=== PATIENT | male | born 1995 | race Two or more races ===

== ENCOUNTER 2024-02-08 13:46 | Emergency (ER) | payer OTHER ==
[~2024-02-08] VITALS: Ht 177.8 cm; Wt 126.2 kg
[2024-02-08] MEDS: proCHLORperazine 10 MG/2 ml inj IV ONE (14:03)
[2024-02-08] MEDS: LORazepam 2 mg/ml vial IV ONE (14:03)
[2024-02-08] MEDS: diphenhydrAMINE 50 mg/ml inj IV ONE (14:03)
[2024-02-08] MEDS: normal saline 1000ML IV soln IVB ONE (14:08)
[2024-02-08] MEDS: haloperidol lactate 5mg/ml inj IM ONE (14:46)
[2024-02-08] MEDS: normal saline 1000ml 1,000 ML IV ONE ×2 (14:46→16:18)
[2024-02-08 14:48] VITALS: TEMP 98
[2024-02-08 15:09] LABS: BASOPHILS % (AUTO) 0.4 % (0-1); EOSINOPHILS % (AUTO) 0 % (0-6); HEMATOCRIT 45.4 % (42.0-52.0); HEMOGLOBIN 15.3 g/dl (14.0-17.9); LYMPHOCYTES % (AUTO) 9.3 % (21-51); MEAN CORPUSCULAR HEMOGLOBIN 28.7 PG (27.0-31.0); MEAN CORPUSCULAR HGB CONC 33.6 g/dL (33.0-36.5); MEAN CORPUSCULAR VOLUME 85.5 FL (78-98); MEAN PLATELET VOLUME 8.6 FL (7.4-10.4); MONOCYTES # (AUTO) 1.2 X10'3 (0-0.9); NEUTROPHILS # (AUTO) 8.6 X10'3 (1.8-7.7); NEUTROPHILS % (AUTO) 79.3 % (42-75); PLATELET COUNT 235 X10'3 (140-440); RED BLOOD COUNT 5.32 X10'6 (4.70-6.10); RED CELL DISTRIBUTION WIDTH 13.9 % (11.5-14.5); WHITE BLOOD COUNT 10.9 X10'3 (4.5-11.0)
[2024-02-08 15:51] LABS: ALANINE AMINOTRANSFERASE 59 U/L (12-78); ALBUMIN 4.5 G/DL (3.4-5.0); ALBUMIN/GLOBULIN RATIO 1.3 (1.1-1.5); ALKALINE PHOSPHATASE 74 IU/L (46-116); ANION GAP 19 (8-16); ASPARTATE AMINO TRANSFERASE 30 U/L (10-37); BILIRUBIN,DIRECT 0.2 MG/DL (0-0.3); BILIRUBIN,TOTAL 1.1 MG/DL (0.1-1.0); BLOOD UREA NITROGEN 18 MG/DL (7-18); BUN/CREATININE RATIO 14.2 (10.0-20.0); CALCIUM 8.8 MG/DL (8.5-10.1); CHLORIDE 103 MMOL/L (99-107); CREATININE 1.27 MG/DL (0.60-1.10); GLUCOSE 95 MG/DL (70-104); LIPASE 14 U/L (16-77); POTASSIUM 3.6 MMOL/L (3.5-5.1); SODIUM 141 MMOL/L (135-145); TOTAL CARBON DIOXIDE 19.5 MMOL/L (24-32); eCRCL 89 ML/MIN; eGFR 68 ML/MIN
[2024-02-08 15:54] LABS: ETHANOL < 10 MG/DL (<10)
[2024-02-08] MEDS: ketorolac trometh 15mg/ml vial 15 MG/ML ML IV ONE (16:18)
[2024-02-08] MEDS: ondansetron/PF 4mg/2ml inj IV ONE (16:18)
[2024-02-08] MEDS: acetaminophen 1,000mg/100ml IV 100 ML IV ONE (16:18)
[2024-02-08 16:49] LABS: BILIRUBIN,URINE NEGATIVE (Neg); CLARITY,URINE CLEAR (Clear); COLOR,URINE STRAW (Yellow); GLUCOSE, URINE NEGATIVE (Neg); KETONES,URINE >=80 mg/dl (Neg); LEUKOCYTE ESTERASE ,URINE NEGATIVE (Neg); NITRITES, URINE NEGATIVE (Neg); OCCULT BLOOD,URINE TRACE-INTACT (Neg); PROTEIN,URINE NEGATIVE (Neg); UROBILINOGEN,URINE 0.2 E.U/dL (0.2-1.0)
[2024-02-08 16:51] LABS: UA COLLECTION TYPE CLN CATCH MIDSTREAM
[2024-02-08 16:55] LABS: BACTERIA,URINE NONE SEEN /HPF (Neg); MUCUS STRANDS NONE SEEN /LPF (Neg); RBC,URINE 0-2 /HPF (0-2); SQUAMOUS EPITHELIAL CELL,UR FEW /LPF (FEW); WBC,URINE 0-4 /HPF (0-4)
[2024-02-08 16:58] LABS: URINE AMPHETAMINE SCREEN NEGATIVE (Neg); URINE BARBITUATE SCREEN NEGATIVE (Neg); URINE BENZODIAZEPINES SCREEN NEGATIVE (Neg); URINE CANNABINOID SCREEN POSITIVE (Neg); URINE COCAINE SCREEN NEGATIVE (Neg); URINE METHADONE SCREEN NEGATIVE (Neg); URINE OPIATE SCREEN NEGATIVE (Neg); URINE PHENCYCLIDINE SCREEN NEGATIVE (Neg)
[2024-02-08] MEDS ORDERED: PHE12.5R RC (16:59)
[2024-02-08] MEDS ORDERED: ONDA-245 PO (16:59)
[2024-02-08 17:13] VITALS: BP 136/87; PULSE 107; RESP 15; O2SAT 95
== END 2024-02-08 17:16 | disposition home or self-care (01) ==
LOC: ER 13:46
DX: K52.89 Other specified noninfective gastroenteritis and colitis (principal); R11.2 Nausea with vomiting, unspecified; Z79.899 Other long term (current) drug therapy
CPT/HCPCS: 36415; 80048; 80076; 80305; 80320; 81001; 83690; 85025; 96361; 96372; 96374; 96375; 99285; J0131; J0780; J1200; J1630; J1885; J2060; J2405; J7030